=== PATIENT | male | born 1990 | race Caucasian/White ===

== ENCOUNTER → 2017-04-22 | Outpatient (CLI) | payer OTHER ==
--- NOTE | 2017-04-22 17:01 | REP ---
MRI BRAIN WITHOUT AND WITH CONTRAST: Sensory neural hearing loss. CONTRAST: ProHance 17 mL. Several punctate areas of increased signal intensity on T2-weighted images are present in the subcortical white matter. There is no intraparenchymal hemorrhage, infarct, mass or midline shift. There is no abnormal enhancement. The ventricular system is normal in appearance. There is no extracerebral collection. There is no cerebellopontine angle mass. The inner ear structures are normal in appearance. The mastoid air cells are clear. Minimal mucosal thickening is present in the maxillary sinuses. IMPRESSION: There are several punctate areas of increased signal intensity in the subcortical white matter. This is a nonspecific finding. Signed by Jeff Cornell MD 04/22/2017 05:04 P
== END ==
LOC: M RAD 14:48
PROVIDERS: ATTEND Otolaryngology
DX: H90.3 Sensorineural hearing loss, bilateral (principal)
CPT/HCPCS: 70553; A9576

== ENCOUNTER → 2017-04-29 | Outpatient (CLI) | payer OTHER ==
--- NOTE | 2017-04-29 09:57 | REP ---
CT study of the internal auditory canals without contrast: History: Sensorineural hearing loss bilaterally. Comparison MRI exam is from April 22, 2017. Technique: Helical scanning is acquired and 1 mm slices are reformatted. Coronal multiplanar re-formation images are generated. CT findings: Internal and external auditory canals are unremarkable. Mastoid aeration is normal. No other paranasal sinus disease is seen. The cochlear and vestibular apparatus is normal bilaterally. Ossicles appear normal in the middle ear on both sides. Middle ear aeration is normal bilaterally. External auditory canals are unremarkable. No intracranial abnormality is visible. Impression: Unremarkable IAC CT study. Signed by Phil Beach MD 04/29/2017 10:16 A
== END ==
LOC: M RAD 08:18 → EDUNIT# 08:30
PROVIDERS: ATTEND Otolaryngology
DX: H90.3 Sensorineural hearing loss, bilateral (principal)